=== PATIENT | male | born 1970 | race Two or more races ===

== ENCOUNTER 2019-08-13 01:03 | Emergency (ER) | payer SELFPAY ==
[2019-08-13 01:26] LABS: ABSOLUTE BASOPHILS # (AUTO) 0.1 10^3/uL (0.0-0.2); ABSOLUTE EOSINOPHILS # (AUTO) 0.3 10^3/uL (0.0-0.6); ABSOLUTE LYMPHOCYTES (AUTO) 2.1 10^3/uL (0.5-4.7); ABSOLUTE MONOCYTES (AUTO) 1.1 10^3/uL (0.1-1.4); ABSOLUTE NEUT (AUTO) 9.4 10^3/uL (1.7-8.2); BASOPHILS % (AUTO) 0.7 % (0-2); EOSINOPHILS % (AUTO) 2.3 % (0-6); HEMATOCRIT 42.9 % (37.9-51.0); HEMOGLOBIN 14.9 g/dL (13.5-17.0); LYMPHOCYTES % (AUTO) 16.5 % (13-45); MEAN CORPUSCULAR HEMOGLOBIN 29.6 pg (27.0-33.4); MEAN CORPUSCULAR HGB CONC 34.8 g/dL (32.0-36.0); MEAN CORPUSCULAR VOLUME 85 fl (80-97); MONOCYTES % (AUTO) 8.1 % (3-13); PLATELET COUNT 329 10^3/uL (150-450); RED BLOOD COUNT 5.03 10^6/uL (4.35-5.55); RED CELL DISTRIBUTION WIDTH 15.1 % (11.5-14.0); SEGMENTED NEUTROPHILS % (AUTO) 72.4 % (42-78); TOTAL CELLS COUNTED % (AUTO) 100 %
[2019-08-13 01:55] LABS: ALBUMIN 3.9 g/dL (3.5-5.0); ALKALINE PHOSPHATASE 71 U/L (38-126); ANION GAP 10 (5-19); ASPARTATE AMINO TRANSFERASE 26 U/L (17-59); BILIRUBIN,DIRECT 0.3 mg/dL (0.0-0.4); BILIRUBIN,TOTAL 0.4 mg/dL (0.2-1.3); BLOOD UREA NITROGEN 15 mg/dL (7-20); CALCIUM 9.1 mg/dL (8.4-10.2); CARBON DIOXIDE 27 mmol/L (22-30); CHLORIDE 104 mmol/L (98-107); CREATINE KINASE 96 U/L (55-170); GLUCOSE 192 mg/dL (75-110); POTASSIUM 4.2 mmol/L (3.6-5.0); TOTAL PROTEIN 7.3 g/dL (6.3-8.2)
--- NOTE | 2019-08-13 01:58 | RADIOLOGY REPORT (SQ) ---
EXAM DESCRIPTION: XR CHEST 1 VIEW COMPLETED DATE/TME: 08/13/2019 01:06 CLINICAL HISTORY: 49 years Male, chest pain, heart racing COMPARISON: None. NUMBER OF VIEWS/TECHNIQUE: 1/AP FINDINGS: Adequate lung volume, clear parenchyma, normal cardiac silhouette, and intact bony thorax.Limitation: Leads/hardware/artifact. IMPRESSION: No acute cardiopulmonary findings.
[2019-08-13 02:07] LABS: CREATINE KINASE MB 1.19 ng/mL (<4.55); TROPONIN I 0.018 ng/mL
[2019-08-13] MEDS ORDERED: METOPROLOL TARTRATE 25 MG TABLET PO ONE (05:12)
--- NOTE | 2019-08-13 05:23 | ER Document Report ---
Entered by ABDIEL QUINONES SCRIBE 08/13/19 0211 Acting as scribe for:IVA URBINA MD ED General - General Chief Complaint: Irregular Pulse Stated Complaint: HEART RACING Time Seen by Provider: 08/13/19 01:42 Information source: Patient Notes: 49-year-old presents to the emergency department complaining of diaphoresis and "heart racing" that lasted for 15-20 minutes yesterday evening. Patient states that these symptoms happen about once a year for the last four years with this being the fifth time. Patient says that his physician in [place] told him that his "one valve closes and opens fast". Patient reports that this physician told him to "lay flat and press his thumb to the roof of his mouth" in order to suppress the symptoms. Patient states that he went to the hospital the first two episodes and then was able to stop the symptoms with this method for the last two episodes. Patient mentions that this fifth time he was not able to stop the symptoms and after about 15-20 minutes he requested an ambulance. Patient said that "EMS gave me something and it made me feel just weird" but helped the symptoms. Patient denies anxiety attacks, chills, diarrhea, and nausea. Patient states that he "feels fine now". TRAVEL OUTSIDE OF THE [place] IN LAST 30 DAYS: No - Related Data Allergies/Adverse Reactions: No Known Allergies Allergy (Unverified 08/13/19 02:26) Home Medications: supposed to take losartan out from 2 mos Past Medical History - General Information source: Patient - Social History Smoking Status: Never Smoker Cigarette use (# per day): No Chew tobacco use (# tins/day): No Frequency of alcohol use: None Drug Abuse: None Lives with: Family Family History: Reviewed & Not Pertinent Patient has suicidal ideation: No Patient has homicidal ideation: No - Past Medical History Cardiac Medical History: Reports: Hx Hypertension Pulmonary Medical History: Reports: Hx Pneumonia Surgical Hx: Negative Review of Systems - Review of Systems Constitutional: See HPI, Diaphoresis. denies: Chills EENT: No symptoms reported Cardiovascular: No symptoms reported Respiratory: See HPI, Other - "Heart racing" Gastrointestinal: See HPI. denies: Diarrhea, Nausea Genitourinary: No symptoms reported Male Genitourinary: No symptoms reported Musculoskeletal: No symptoms reported Skin: No symptoms reported Hematologic/Lymphatic: No symptoms reported Neurological/Psychological: denies: Anxiety, Homicidal ideation, Suicidal ideation -: Yes All other systems reviewed and negative Physical Exam - Vital signs Vitals: Temp Pulse Resp BP Pulse Ox 98 F 100 16 150/100 H 97 08/13/19 01:09 08/13/19 01:09 08/13/19 01:09 08/13/19 01:09 08/13/19 01:09 - Notes Notes: Physical Exam: General: Alert, appears well. Obese. HEENT: Normocephalic. Atraumatic. PERRL. Extraocular movements intact. Oropharynx clear. Neck: Supple. Non-tender. Respiratory: No respiratory distress. Clear and equal breath sounds bilaterally. Cardiovascular: Regular rate and rhythm. Abdominal: Normal Inspection. Non-tender. No distension. Normal Bowel Sounds. Back: No gross abnormalities. Extremities: Moves all four extremities. Upper extremities: Normal inspection. Normal ROM. Lower extremities: Normal inspection. No edema. Normal ROM. Neurological: Normal cognition. AAOx4. Normal speech. Psychological: Normal affect. Normal Mood. Skin: Warm. Dry. Normal color. Course - Re-evaluation Re-evalutation: 08/13/19 03:42 Patient resting comfortably not having any chest discomfort and there is no tachycardia or arrhythmia occurring at this time. Pending at this time her laboratories for magnesium and TSH and second troponin. - Vital Signs Vital signs: Temp Pulse Resp BP Pulse Ox 98 F 100 16 150/100 H 97 08/13/19 01:09 08/13/19 01:09 08/13/19 01:09 08/13/19 01:09 08/13/19 01:09 - Laboratory Result Diagrams: 08/13/19 01:15 08/13/19 01:15 Laboratory results interpreted by me: 08/13/19 08/13/19 08/13/19 01:15 01:15 01:15 WBC 13.0 H RDW 15.1 H Absolute Neuts (auto) 9.4 H Glucose 192 H Magnesium 2.4 H 08/13/19 05:14 Second troponin comes back elevated at 0.073. Discussed case with the hospitalist who recommended that patient have a third troponin done within 4 ho urs and base a clinical decision of disposition of patient on the level of his troponin at that time. Therefore a troponin third set will be done at 7:30 AM this a.m. While patient's blood pressure started to elevate and its around 155/95 and patient states he was on a very low-dose losartan around 5 mg which I do not believe we have in our formulary at this hospital. So I chose to put patient on 25 mg of metoprolol tartrate. - Diagnostic Test Radiology reviewed: Image reviewed, Reports reviewed Radiology results interpreted by me: 08/13/19 03:44 No acute process no infiltrate cardiomegaly noted. - EKG Interpretation by Me Additional EKG results interpreted by me: 08/13/19 03:45 Twelve-lead EKG done at 111 shows sinus tachycardia [address]-T wave changes noted. Interventricular conduction delay noted in V1 V2 incomplete right bundle branch block 08/13/19 05:16 Second EKG done at 444 shows a normal sinus rhythm rate of 82 with an intraventricular conduction delay noted in lead III, V1 and V2. There is reciprocal repolarization changes based on the incomplete right bundle branch block otherwise no acute process. Critical Care Note - Critical Care Note Total time excluding time spent on procedures (mins): 39 - Monitoring blood pressure cardiovascular parameters, laboratory values of troponin and other electrolytes. And monitoring for chest pain Discharge - Discharge Clinical Impression: Supraventricular tachycardia, Hypertension, uncontrolled, Elevated troponin I level Condition: Critical Disposition: ADMITTED INPATIENT I personally performed the services described in the documentation, reviewed and edited the documentation which was dictated to the scribe in my presence, and it accurately records my words and actions.
[2019-08-13 07:11] LABS: APPEARANCE,URINE CLEAR; BILIRUBIN,URINE NEGATIVE (NEGATIVE); COLOR,URINE STRAW; GLUCOSE, URINE 50 mg/dL (NEGATIVE); KETONES,URINE NEGATIVE (NEGATIVE); LEUKOCYTE ESTERASE,URINE NEGATIVE (NEGATIVE); NITRITE,URINE NEGATIVE (NEGATIVE); PROTEIN,URINE NEGATIVE (NEGATIVE); URINE SPECIFIC GRAVITY 1.004; UROBILINOGEN,URINE NEGATIVE mg/dL (<2.0)
--- NOTE | 2019-08-13 07:22 | EKG REPORT ---
SEVERITY:- OTHERWISE NORMAL ECG - SINUS TACHYCARDIA : Confirmed by: Jung Carrillo MD 13-Aug-2019 07:21:43
--- NOTE | 2019-08-13 07:22 | EKG REPORT ---
SEVERITY:- NORMAL ECG - SINUS RHYTHM ST ELEV, PROBABLE NORMAL EARLY REPOL PATTERN : Confirmed by: Jung Carrillo MD 13-Aug-2019 07:21:23
[2019-08-13 07:26] LABS: URINE AMPHETAMINES SCREEN NEGATIVE; URINE BARBITURATES SCREEN NEGATIVE; URINE BENZODIAZEPINES SCREEN NEGATIVE; URINE COCAINE SCREEN NEGATIVE; URINE MARIJUANA (THC) SCREEN NEGATIVE; URINE METHADONE SCREEN NEGATIVE; URINE PHENCYCLIDINE SCREEN NEGATIVE
--- NOTE | 2019-08-13 13:22 | ER Document Report ---
Doctor's Note Notes: 08/13/19 13:18 This 49-year-old male patient with a history of SVT which occurs about once a year, normally controls his symptoms with a Valsalva maneuver he was taught. He had this occur just after midnight tonight, it lasted about 20 minutes and he could not get it to stop. He called 911 and EMS gave 6 mg Adenocard and converted. He has been in the emergency room since about 1 AM. He was signed out to me this morning about 630, he had initial troponin that was 0.018. 2 hours later it was a 0.073. He was supposed to get 1 drawn at 0730 and eventually it was drawn and hemolyzed. It was finally repeated around 1030 this morning, and it went up to 0.094 at approximately 9 hours after the onset of his symptoms. He reports he moved to this area just over a month ago has not established with a primary care provider. He takes metformin for his diabetes, he still has that medicine takes it. He takes losartan/HCTZ for blood pressure, but he has run out and has not tried to see anyone about this. He does not know the dose of the losartan HCTZ. I discussed the patient's troponin leak in the face of only 20 minutes of tachycardia. Advised him he needs to get a primary care provider, and follow-up with a gas plant operator. He states he did have a normal stress test 3 years ago.
[2019-08-13 13:59] VITALS: BP 132/89
== END 2019-08-13 14:00 | disposition home or self-care (01) ==
LOC: ER 01:03
DX: I47.1 Supraventricular tachycardia (principal); I10 Essential (primary) hypertension; R79.89 Other specified abnormal findings of blood chemistry; R61 Generalized hyperhidrosis; I45.10 Unspecified right bundle-branch block; E11.9 Type 2 diabetes mellitus without complications; Z79.84 Long term (current) use of oral hypoglycemic drugs; Z79.899 Other long term (current) drug therapy
CPT/HCPCS: 36415; 71045; 80053; 80307; 81001; 82550; 82553; 83735; 84443; 84484; 85025; 93005; 93010